=== PATIENT | male | born 1985 | race Caucasian/White ===

== ENCOUNTER 2024-05-31 13:05 | Emergency (ER) | payer OTHER ==
[2024-05-31] MEDS: HYDROmorphone 1 MG/ML Syringe IVPUSH ONE ×2 (13:25→14:30)
== END 2024-05-31 16:49 | disposition home or self-care (01) ==
LOC: JP.ED 13:05
DX: S42.301A Unspecified fracture of shaft of humerus, right arm, initial encounter for closed fracture (principal); M21.331 Wrist drop, right wrist; Z79.899 Other long term (current) drug therapy; Z79.1 Long term (current) use of non-steroidal anti-inflammatories (NSAID); W11.XXXA Fall on and from ladder, initial encounter
CPT/HCPCS: 73030-26-RT; 73030-RT; 73060-26-RT; 73060-RT; 96374; 96376; 99283; 99283-25; J1170